=== PATIENT | male | born 1980 | race Caucasian/White ===

== ENCOUNTER → 2016-06-10 | Outpatient (CLI) | payer BC ==
[~2016-06-10] MED LIST: BACLOFEN 10MG T10 MG PO; BUTALB-ACETAMIN-CAFF OR; FIORICET1 CAP PO; FLUOXETINE20 MG PO; GABAPENTIN100 MG PO; PHENERGAN 12.12.5 M1 PO; RELAFEN 750MG750 MG PO; TRAMADOL HYDROC50 M1 PO
[2016-06-10 17:48] LABS: URINE BILIRUBIN - DIPSTICK NEGATIVE (NEG); URINE BLOOD NEGATIVE (NEG)
[2016-06-10 18:07] LABS: URINE SQUAMOUS CELLS OCC #/hpf (OCC)
[2016-06-10 18:21] LABS: HEMOGLOBIN 14.2 g/dL (14.1-18.0); LYMPH # 2.1 K/mm3 (0.7-4.5); LYMPH % 39.6 % (10-50)
--- NOTE | 2016-06-10 18:40 | RADIOLOGY REPORT PS360 ---
CHEST(2 VIEWS-NOT PORTABLE) HISTORY: CHEST PAIN COMPARISON: None available FINDINGS: The cardiomediastinal silhouette and pulmonary vascularity are within normal limits. The lungs are clear without infiltrates, suspicious nodules, or pleural effusions. No acute bony abnormalities. IMPRESSION: Negative chest, no acute finding
[2016-06-10 19:41] LABS: BUN 15 mg/dL (7-18)
[2016-06-10 19:50] LABS: GFR (ESTIMATED) 69 ML/MIN (>60)
== END ==
LOC: LAB 17:12 → RT 17:12
PROVIDERS: Orthopaedic Surgery
DX: R07.9 Chest pain, unspecified (principal); R68.89 Other general symptoms and signs; R79.1 Abnormal coagulation profile; R82.90 Unspecified abnormal findings in urine